=== PATIENT | male | born 1955 | race Caucasian/White ===

== ENCOUNTER → 2022-09-15 08:56 | Outpatient (REF) | payer OTHER, SELFPAY ==
--- NOTE | 2022-09-15 08:59 | CA_ITS ---
Acquisition Time: 2022-09-15 09:24:05 Total Exercise Time: 00:05:01 Test Indications: CP Medications: SEE CHART Protocol: DANIELLE Max HR: 151 BPM 98% of Pred: 154 BPM Max BP: 150/064 mmHG Max Work Load: 7.0 METS Exercise stress test with exercise 5 min of Danielle protocol achieving heart rate over 90% MPHR, 7 METs, with moderate shortness of breath and no chest discomfort, with isolated PACs, with normotensive response to exercise, with artifact on tracings during exercise, without EKG changes meeting criteria for ischemia at 12 sec recovery and remainder of recovery. Breathing normalized with rest. Test reviewed with Dr Luevano Referred By: Kaity Blanc Overread By: JESSE WILSON
== END ==
LOC: HO.CARD 08:56
PROVIDERS: Visit Provider Internal Medicine
DX: R07.9 Chest pain, unspecified (principal)
CPT/HCPCS: 93017

== ENCOUNTER 2022-10-07 12:32 | Outpatient (REF) | payer OTHER, SELFPAY ==
[2022-10-07 14:10] LABS: MANUAL DIFF FLAG NO
[2022-10-07 14:15] LABS: Basophils Absolute Auto 0.1 X10*3/uL (0.0-0.2); Basophils Percent Auto 0.8 % (0-2); Eosinophils Absolute Auto 0.2 X10*3/uL (0.0-0.4); Eosinophils Percent Auto 3.6 % (0-4); Hematocrit 42.8 % (42.0-52.0); Imm Gran Abs Auto 0.02 X10*3/uL (0.00-0.03); Imm Gran Pct Auto 0.3 % (0.0-0.4); Lymphocytes Absolute Auto 1.8 X10*3/uL (1.2-4.9); Lymphocytes Percent Auto 26.3 % (20-40); Mean Corpuscular HGB Conc 32.7 g/dl (31.0-36.0); Mean Corpuscular Hemoglobin 30.6 pg (27.0-33.0); Mean Corpuscular Volume 93.7 fL (80.0-98.0); Mean Platelet Volume 10.8 fL (9.4-12.4); Monocytes Absolute Auto 0.7 X10*3/uL (0.1-1.2); Monocytes Percent Auto 10.8 % (2-11); Neutrophils Absolute Auto 3.9 x10*3/uL (2.0-8.3); Neutrophils Percent Auto 58.2 % (45-73); Platelet Count 228 X10*3/uL (160-400); Red Blood Count 4.57 X10*6/uL (4.60-5.80); Red Cell Distribution Width 13.2 % (11.0-16.0); White Blood Count 6.7 X10*3/uL (4.8-10.8)
[2022-10-07 14:42] LABS: Alanine Aminotransferase 31 U/L (0-40); Albumin Level 4.4 g/dL (3.5-5.0); Alkaline Phosphatase 52 U/L (39-117); Anion Gap 14 (12-20); Aspartate Amino Transferase 28 U/L (5-37); Bilirubin Total 0.5 mg/dL (0.0-1.0); Blood Urea Nitrogen 17 mg/dL (9-16); Calcium 9.5 mg/dL (8.4-10.2); Carbon Dioxide 27 mmol/L (22-29); Chloride 105 mmol/L (96-108); Cholesterol 184 mg/dL; Estimated Glomerular Filt Rate > 60; Glucose Random 89 mg/dL (60-115); HDL Cholesterol 41 mg/dL; LDL Cholesterol Calculated 128 mg/dl; Potassium 4.9 mmol/L (3.3-5.1); Sodium 141 mmol/L (135-145); Total Protein 7.4 g/dL (6.5-8.0); Triglycerides 76 mg/dL
[2022-10-07 14:48] LABS: Free T4 (Free Thyroxine) 1.01 ng/dL (0.71-1.85); Prostate Specific Antigen Scr 0.29 ng/mL (<0.05-4.0)
[2022-10-07 14:58] LABS: Folate 18.6 ng/mL (> or = 4.0); Vitamin B12 540 pg/mL (200-900)
== END 2022-10-07 12:33 | disposition home or self-care (01) ==
LOC: HO.HMGCLDS 12:32
PROVIDERS: PCP Internal Medicine; Visit Provider Internal Medicine
DX: Z12.5 Encounter for screening for malignant neoplasm of prostate (principal); E78.00 Pure hypercholesterolemia, unspecified; E66.9 Obesity, unspecified
CPT/HCPCS: 36415; 80053; 80061; 82607; 82746; 84153; 84439; 84443; 85025

== ENCOUNTER 2023-02-27 21:27 | Emergency (ER) | payer MEDICARE, SELFPAY ==
[2023-02-27 21:30] VITALS: BP 155/84; PULSE 67; RESP 18; TEMP 36.5; O2SAT 96; BMI 35.6
--- NOTE | 2023-02-27 23:11 | ED.DENTAL ---
HPI - Dental/Oral General Chief complaint: Dental/Oral Stated complaint: Toothache Time Seen by Provider: 02/27/23 22:18 Source: patient and family () Mode of arrival: ambulatory History of Present Illness HPI Narrative: 68-year-old male who presents with significant worsening of right lower molar pain, pulsating in nature and sensitive to heat and cold. Related Data Previous Rx's Medication Instructions Recorded amoxicillin 875 mg-potassium 1 tab PO BID 7 days #14 tabs 02/27/23 clavulanate 125 mg tablet ketorolac 10 mg tablet 10 mg PO Q6H PRN pain 5 days #20 02/27/23 tabs Allergies Allergy/AdvReac Type Severity Reaction Status Date / Time No Known Allergies Allergy Verified 02/27/23 21:29 Review of Systems Review of Systems: Pertinent positives and negatives as stated HPI [facility] Past Medical History Source: nursing notes reviewed Medical History Obesity (BMI 30-39.9) Renal calculi Surgical History History of lithotripsy Social History Social History Housing: Apartment Alcohol intake: never Patient Tobacco Use Status: Never used Tobacco Tobacco use type: Cigarette e-Cigarette/Vaping Use: Never Used Second Hand Smoke Exposure: No Advance Directives: No Advance Directives Information Provided: No service: No Current occupational status: retired Cognitive needs: No Hearing needs: No Vision needs: No Physical Exam Vital Signs: Vital Signs: Last Vital Signs Temp 97.7 F 02/27/23 21:30 Pulse 67 02/27/23 21:30 Resp 18 02/27/23 21:30 BP 155/84 H 02/27/23 21:30 Pulse Ox 96 02/27/23 21:30 O2 Del Method Room Air 02/27/23 21:30 BMI result Body Mass Index 35.6 VITAL SIGNS: Reviewed. GENERAL: Well developed, well nourished, in no acute distress. HEAD: Normocephalic/atraumatic EYES: PERRLA, EOMI EARS: Ext canals without abnormality NOSE: Nares patent bilateral OROPHARYNX: no oral lesions noted, posterior pharynx clear, obvious cracked molar with half of the missing tooth minimal gingival swelling no facial swelling no trismus NECK: Supple, no adenopathy LUNGS: Normal breath sounds. No adventitious sounds or accessory muscle use. SpO2<96> CARDIOVASCULAR: Regular rate and rhythm without noted murmurs ABDOMEN: Soft, non-tender, non-distended with bowel sounds. MUSCULOSKELETAL: No tenderness, deformities, or effusions noted on gross inspection. EXTREMITIES: No cyanosis, clubbing or edema. SKIN: Inspection of the skin reveals no rashes NEUROLOGIC: Alert and oriented x 4. Strength and sensation to light touch were grossly intact x 4. Medications Administered Discontinued Medications Generic Name Dose Route Start Last Admin Trade Name Freq PRN Reason Stop Dose Admin Acetaminophen 975 mg 02/27/23 23:10 02/27/23 23:28 Acetaminophen 325 Mg Tablet PO 02/27/23 23:11 975 mg ONCE ONE Administration Amoxicillin/Clavulanate Potassium 875 mg 02/27/23 23:10 02/27/23 23:27 Amoxicillin/Potassium Clav 875 Mg Tablet PO 02/27/23 23:11 875 mg ONCE ONE Administration Ketorolac Tromethamine 15 mg 02/27/23 23:10 02/27/23 23:29 Ketorolac Tromethamine 15 Mg/Ml Vial IM 02/27/23 23:11 15 mg ONCE ONE Administration Oxycodone HCl 5 mg 02/27/23 23:10 02/27/23 23:27 Oxycodone Hcl Immed Release 5 Mg Tablet PO 02/27/23 23:11 5 mg ONCE ONE Administration Medical Decision Making Medical Decision Making MDM Narrative: 68-year-old male with poor dentition, dental caries with cracked molar and likely dental abscess. Patient received pain medication, antibiotic and is discharged home in stable condition. Patient has follow-up with a dentist. Differential Diagnosis Please see the discussion above External Record Review External record reviewed: Prior outpatient labs Discharge Plan Discharge Clinical Impression: Dental abscess, Cracked tooth Patient Disposition: Home, Self-Care Instructions: Dental Abscess (ED), Toothache (ED) Additional Instructions: 1. Complete the entire course of antibiotics as ordered. 2. Tylenol 1000 mg, orally, every 6 hours as needed for pain control. 3. Apply ice to unexposed skin for additional symptom relief of toothache. 4. Please utilize the topical numbing medication to dry gum and tooth area. 5. Keep your dental appointment as scheduled. Return to the ER for any worsening symptoms. Prescriptions: New ketorolac 10 mg tablet 10 mg PO Q6H PRN (Reason: pain) 5 Days Qty: 20 0RF Rx Instructions: Patient received in the emergency room. amoxicillin-pot clavulanate 875-125 mg tablet 1 tab PO BID 7 Days Qty: 14 0RF Referrals: Po,Kaity Concepcion MD [Primary Care Provider] -
[2023-02-27] MEDS: oxyCODONE HCl Immed Release 5 MG TABLET PO (23:27)
[2023-02-27] MEDS: Amoxicillin/Potassium Clav 875 MG TABLET PO (23:27)
[2023-02-27] MEDS: Acetaminophen 325 MG TABLET 975 MG PO (23:28)
[2023-02-27] MEDS: Ketorolac Tromethamine 15 MG/ML VIAL IM (23:29)
== END 2023-02-27 23:30 | disposition home or self-care (01) ==
PROVIDERS: Emergency Provider Student in an Organized Health Care Education/Training Program; PCP Internal Medicine
DX: K04.7 Periapical abscess without sinus (principal); K03.81 Cracked tooth; K08.89 Other specified disorders of teeth and supporting structures; F17.200 Nicotine dependence, unspecified, uncomplicated
CPT/HCPCS: 96372; 99283; 99284; J1885

== ENCOUNTER 2023-03-01 01:58 | Emergency (ER) | payer MEDICARE, SELFPAY ==
--- NOTE | ~2023-03-01 | CT_ITS ---
EXAMINATION: CT FACIAL BONES WITH CONTRAST CLINICAL INFORMATION: Rule out abscess along right mandible. COMPARISON: None available. TECHNIQUE: Multidetector CT imaging of the maxillofacial region was performed after the administration of 80 mL Omnipaque 350 intravenous contrast. Coronal and sagittal reformats created on an independent workstation were reviewed. This CT examination was performed using dose optimization techniques as appropriate, variously including the following: *Automated exposure control *Adjustment of mA and/or kV according to patient size (this includes techniques or standardized protocols for targeted exams where dose is matched to indication/reason for exam; i.e. extremities or head) *Use of iterative reconstruction technique DLP: 417 mGy-cm FINDINGS: There is fat stranding within the buccal fat in the right mandibular and submandibular subcutaneous fat with accompanying skin thickening, and mild thickening of the right platysma. No drainable collection identified deep spaces of the neck are symmetric. No evidence of deep space infection. No retroperitoneal fluid. Regional soft tissue structures unremarkable. Orbits and globes are normal. Carotid and vertebral arteries are patent. No venous thrombosis. Mildly hyperemic reactive right submandibular lymph nodes without pathologic enlargement. Periapical abscesses along the roots of the right mandibular first molar. Small periapical abscess of the right maxillary first premolar with associated caries. No periapical disease elsewhere. Caries present of the left mandibular first and second premolars. CT/CT facial bones w IV con IMPRESSION: * Right mandibular and submandibular cellulitis. No evidence of deep space infection. * Periapical abscesses along the roots of the right mandibular first molar, right maxillary first premolar with associated caries. * Caries present of the left mandibular first and second premolars.
[2023-03-01 02:07] VITALS: BP 127/69; PULSE 83; RESP 15; TEMP 37.1; O2SAT 95; BMI 36.6
--- NOTE | 2023-03-01 02:29 | ED_ITS ---
HPI - Dental/Oral General Chief complaint: Dental/Oral Stated complaint: Dental abscess Time Seen by Provider: 03/01/23 02:01 Source: patient Mode of arrival: ambulatory Limitations: no limitations History of Present Illness HPI Narrative: Patient comes to the emergency room complaining of swelling in the right man dibular area. Patient was evaluated approximately 26 hours ago for a cracked tooth. Patient was appropriately started on Augmentin and given ketorolac for pain. Patient states that he has been compliant with his antibiotic, and throughout the day patient has had labial lower swelling and worsening swelling around the right mandibular area. Patient states that it does not hurt significantly. However, the size of the inflammation patient wear it. Patient denies any chest pain or shortness of breath, no foreign body sensation in throat. Related Data Previous Rx's Medication Instructions Recorded amoxicillin 875 mg-potassium 1 tab PO BID 7 days #14 tabs 02/27/23 clavulanate 125 mg tablet ketorolac 10 mg tablet 10 mg PO Q6H PRN pain 5 days #20 02/27/23 tabs Lactobacil rhamnosus GG 10 billion 1 tab PO .T.i.d. 15 days #45 tabs 03/01/23 cell-inulin 200 mg chewable tablet ([facility] [employer] [facility]) clindamycin HCl 150 mg capsule 150 mg PO Q6H 10 days #40 caps 03/01/23 tramadol 50 mg tablet 50 mg PO TID PRN pain #9 tabs 03/01/23 Allergies Allergy/AdvReac Type Severity Reaction Status Date / Time No Known Allergies Allergy Verified 03/01/23 02:09 Review of Systems Review of Systems: Constitutional : No Weight loss, No Fever, No Chills, No Night Sweats, No Fatigue, No Malaise ENT/Mouth : Complaining of mandibular swelling on the right side and a cracked tooth, No Hearing loss, No Ear Pain, No Nasal Congestion, No Sinus Pain, No Hoarseness, No sore throat, No Rhinorrhea, No Swallowing Difficulty Eyes: No Eye Pain, No Swelling, No Redness, No Foreign Body, No Discharge, No Vision Changes Cardiovascular : No Chest Pain, No SOB, No Dyspnea on Exertion, No Orthopnea, No Edema, No Palpitations Respiratory : No Cough, No Sputum, No Wheezing, No Smoke Exposure, No Dyspnea Gastrointestinal : No Nausea, No Vomiting, No Diarrhea, No Constipation, No abdominal Pain, No Hematochezia, No Melena Genitourinary : no irregular bleeding, No Dysuria, No Urinary Frequency, No H ematuria, No Urinary Incontinence, No Urgency, No Flank Pain, No Urinary Flow Changes, No Hesitancy Musculoskeletal : No joint pain, No Myalgias, No Joint Swelling Skin : No Skin Lesions, No rash Neuro : No Weakness, No Numbness, No Paresthesias, No Loss of Consciousness, No Dizziness, No Headache Psych : No Anxiety/Panic, No Depression, No SI/HI/AH/VH, No Social Issues, Heme/Lymph: No Bruising, No Bleeding,No Lymphadenopathy Endocrine : No Polyuria, No Polydipsia, No Temperature Intolerance [facility] Past Medical History Medical History Obesity (BMI 30-39.9) Renal calculi Surgical History History of lithotripsy Social History Social History Housing: Apartment Alcohol intake: never Patient Tobacco Use Status: Never used Tobacco Tobacco use type: Cigarette Smoked in Last 30 Days: No e-Cigarette/Vaping Use: Never Used Second Hand Smoke Exposure: No Use of substances other than those prescribed or required for medical reasons: No Advance Directives: No Advance Directives Information Provided: Yes service: No Current occupational status: retired Cognitive needs: No Hearing needs: No Vision needs: No Physical Exam Vital Signs: Vital Signs: Last Vital Signs Temp 97.4 F 03/01/23 02:42 Pulse 85 03/01/23 02:42 Resp 18 03/01/23 02:42 BP 137/85 03/01/23 02:42 Pulse Ox 96 03/01/23 02:42 O2 Del Method Room Air 03/01/23 02:42 BMI result Body Mass Index 36.6 Const: Other: Appearance: Alert. Oriented X3. No acute distress. Eyes: Pupils equal, round and reactive to light. ENT: Pharynx normal. Cracked 1st molar and the mandibular right side, significant swelling of the lower lip, palpable edema and the mucosa on the right in it cheek. no pain to palpation over the swelling, patient has edematous lower lip on the right half. I do not see an abscess that could be drained Neck: Normal inspection. Neck supple. No lymph nodes noted. No crepitus CVS: Normal heart rate and rhythm. Pulses normal. Normal S1 and S2 Respiratory: No respiratory distress. Breath sounds normal. No Wheezing. No rales Abdomen: Soft and nontender. No rigidity. No distention. Skin: Skin warm and dry. Normal skin color. Normal skin turgor. Extremities: No lower extremity edema. No Lacerations. No Rash Neuro: Oriented X 3. No motor deficit. No sensory deficit. Moving all extremities. No slurred speech. CN 2 through 12 grossly intact Psych: calm, cooperative, normal affect Course Course Course Narrative: -CT scan of the facial bones with contrast pending -CBC pending -given the swelling of the lips, edema of the inner mucosa, this is likely secondary to medication rather than an abscess. patient being started on Solu-Medrol, Pepcid, Benadryl -antibiotics switched to clindamycin, 1st dose given IV Medications Administered Discontinued Medications Generic Name Dose Route Start Last Admin Trade Name Freq PRN Reason Stop Dose Admin Diphenhydramine HCl 50 mg 03/01/23 02:07 03/01/23 02:38 Diphenhydramine Hcl 50 Mg/Ml Vial IVPUSH 03/01/23 02:08 50 mg ONCE ONE Administration Famotidine 20 mg 03/01/23 02:07 03/01/23 02:38 Famotidine/Pf 20 Mg/2 Ml Vial IVPUSH 03/01/23 02:08 20 mg ONCE ONE Administration Sodium Chloride 1,000 mls @ 999 mls/hr 03/01/23 02:07 03/01/23 02:37 Ns IVCONT 03/01/23 03:07 999 mls/hr .Q1H1M ONE Administration Clindamycin Phosphate 300 mg in 50 mls @ 100 mls/hr 03/01/23 02:07 03/01/23 02:38 Cleocin IV 03/01/23 02:36 100 mls/hr ONCE ONE Administration Iohexol 85 ml 03/01/23 03:02 03/01/23 03:02 Iohexol 350 Mg/Ml 100 Ml Infus..Btl IV 03/01/23 03:03 85 ml ONCE ONE Administration Methylprednisolone Sodium Succinate 125 mg 03/01/23 02:07 03/01/23 02:38 Methylprednisolone Sod Succ 125 Mg/2 Ml Vial IVPUSH 03/01/23 02:08 125 mg ONCE ONE Administration Medical Decision Making Medical Decision Making [facility] Narrative: -the swelling in the patient's face does not seem to be secondary to an abscess, it is relatively painless. There is no external cellulitis. -patient responded well to treatment with steroids, Pepcid and Benadryl. The s welling of the lower lip significantly decreased. -I discussed with the patient to discontinue taking Augmentin and Toradol which are 2 new medications which she has not had before they were prescribed. -patient has an appointment today with his dentist, encouraged to keep his appointment today. -also, discussed with the patient that clindamycin because C difficile. Patient instructed to eat plenty of yogurt and take probiotics -also, since Toradol is new, patient struck to discontinue taking Toradol and a small dose of narcotics will be prescribed to the patient. -patient has no pain under the tongue or in the chin area, white blood cell count is mildly elevated, no fever chills, normal blood pressure, sepsis not suspected, Mak's angina is not suspected Differential Diagnosis Differential Diagnoses: The differential diagnosis associated with the presentation includes (Cellulitis, allergic reaction, abscess, Mak's angina) Lab Data MDM Lab Attestation statement: I reviewed the patient's lab results. 03/01/23 02:22 03/01/23 02:22 Labs: Lab Results 03/01/23 03/01/23 03/01/23 Range/Units 02:22 02:22 02:22 WBC 12.1 H (4.8-10.8) X10*3/uL RBC 4.40 L (4.60-5.80) X10*6/uL Hgb 13.6 L (14.0-18.0) g/dl Hct 40.5 L (42.0-52.0) % MCV 92.0 (80.0-98.0) fL MCH 30.9 (27.0-33.0) pg MCHC 33.6 (31.0-36.0) g/dl RDW 12.6 (11.0-16.0) % Plt Count 209 (160-400) X10*3/uL MPV 10.0 (9.4-12.4) fL Immature Gran % (Auto) 0.2 (0.0-0.4) % Neut % (Auto) 72.1 (45-73) % Lymph % (Auto) 13.4 L (20-40) % [place] % (Auto) 12.9 H (2-11) % Eos % (Auto) 1.1 (0-4) % Baso % (Auto) 0.3 (0-2) % Lymph # (Auto) 1.6 (1.2-4.9) X10*3/uL [place] # (Auto) 1.6 H (0.1-1.2) X10*3/uL Eos # (Auto) 0.1 (0.0-0.4) X10*3/uL Baso # (Auto) 0.0 (0.0-0.2) X10*3/uL Abs Immat Gran (auto) 0.03 (0.00-0.03) X10*3/uL Absolute Neuts (auto) 8.7 H (2.0-8.3) x10*3/uL Absolute Nucleated RBC 0.000 (0.0-0.012) X10*3/uL Nucleated RBC % (auto) 0.0 (0.0-0.2) /100WBC Smear Tech's Comments VERIFIED Sodium 139 (135-145) mmol/L Potassium 4.4 (3.3-5.1) mmol/L Chloride 104 (96-108) mmol/L Carbon Dioxide 25 (22-29) mmol/L Anion Gap 14 (12-20) BUN 11 (9-16) mg/dL Creatinine 0.90 (0.5-1.4) mg/dL Estim Creat Clear Calc 107.6 Estimated GFR > 60 Random Glucose 102 (60-115) mg/dL Lactic Acid 0.9 (0.5-2.0) mmol/L Calcium 8.8 D (8.4-10.2) mg/dL Total Bilirubin 0.7 (0.0-1.0) mg/dL Direct Bilirubin 0.2 (0.0-0.5) mg/dL AST 20 (5-37) U/L ALT 22 (0-40) U/L Alkaline Phosphatase 56 (39-117) U/L Total Protein 6.9 (6.5-8.0) g/dL Albumin 4.1 (3.5-5.0) g/dL Independent Interpretation I performed an independent interpretation of an: CT Scan (My interpretation of facial bones CT scan: No abscess, edema versus cellulitis present) Radiology Impression Discussion of test interpretation with radiology: I have reviewed the radiologist's reading. Radiologist Impression: FINDINGS: Head: There is no evidence of acute intracranial hemorrhage or territorial infarction. No abnormal mass effect or midline shift is seen. Landis to white matter differentiation is well preserved. No extra-axial fluid collections are identified. No hydrocephalus. No significant volume loss. There is no abnormal attenuation within the brain parenchyma. No acute soft tissue abnormality. No calvarial fracture. The mastoid air cells are well aerated. Maxillofacial: No acute maxillofacial fractures are seen. The frontal, maxillary, ethmoid, and sphenoid sinuses are well aerated. The uncinate process is normal bilaterally. The infundibula and middle meati are patent. The nasal septum is midline. The mandibular heads are well-seated in the condylar fossa. The orbits demonstrate a normal appearance bilaterally. The globes are intact, and there are no suspicious findings to suggest retrobulbar hemorrhage. There is left premaxillary and buccal soft tissue swelling/stranding with trace soft tissue gas punctate hyperdensities reflective of foreign bodies. CT/CT facial bones wo IV con IMPRESSION: *? No acute intracranial findings. *? No acute maxillofacial fracture. *? Left premaxillary and buccal soft tissue trauma as described. ? Discharge Plan Discharge Clinical Impression: Adverse reaction to drug Patient Disposition: Home, Self-Care Instructions: Antibiotic Medication Allergy (ED) Additional Instructions: Please do not take penicillins or Toradol until you get tested for allergies to these 2 medications. If you develop significant diarrhea, please return to the emergency room. Please follow-up with your primary care physician tomorrow. If you have any worsening or new symptoms, please return to the emergency room or call 911 Prescriptions: New clindamycin HCl 150 mg capsule 150 mg PO Q6H 10 Days Qty: 40 0RF tramadol 50 mg tablet 50 mg PO TID PRN (Reason: pain) Qty: 9 0RF [facility] 10 billion cell -200 mg tablet,chewable 1 tab PO .T.i.d. 15 Days Qty: 45 0RF Rx Instructions: One tablet oral t.i.d. No Action ketorolac 10 mg tablet 10 mg PO Q6H PRN (Reason: pain) 5 Days Qty: 20 0RF Rx Instructions: Patient received in the emergency room. amoxicillin-pot clavulanate 875-125 mg tablet 1 tab PO BID 7 Days Qty: 14 0RF
[2023-03-01 02:30] LABS: Basophils Percent Auto 0.3 % (0-2); Eosinophils Absolute Auto 0.1 X10*3/uL (0.0-0.4); Eosinophils Percent Auto 1.1 % (0-4); Hematocrit 40.5 % (42.0-52.0); Hemoglobin 13.6 g/dl (14.0-18.0); Imm Gran Abs Auto 0.03 X10*3/uL (0.00-0.03); Imm Gran Pct Auto 0.2 % (0.0-0.4); Lymphocytes Absolute Auto 1.6 X10*3/uL (1.2-4.9); Lymphocytes Percent Auto 13.4 % (20-40); MANUAL DIFF FLAG SCAN; Mean Corpuscular HGB Conc 33.6 g/dl (31.0-36.0); Mean Corpuscular Hemoglobin 30.9 pg (27.0-33.0); Monocytes Absolute Auto 1.6 X10*3/uL (0.1-1.2); Monocytes Percent Auto 12.9 % (2-11); Neutrophils Absolute Auto 8.7 x10*3/uL (2.0-8.3); Neutrophils Percent Auto 72.1 % (45-73); Platelet Count 209 X10*3/uL (160-400); Red Cell Distribution Width 12.6 % (11.0-16.0); SCAN SMEAR FLAG 1; White Blood Count 12.1 X10*3/uL (4.8-10.8)
[2023-03-01 02:32] LABS: SLIDE REVIEW VERIFIED
[2023-03-01] MEDS: 0.9 % Sodium Chloride 1,000 ML 999 ML IVCONT (02:37)
[2023-03-01] MEDS: diphenhydrAMINE HCL 50 MG/ML VIAL IVPUSH (02:38)
[2023-03-01] MEDS: Clindamycin Phosphate/D5W 300 MG/50 ML PIGGYBACK 100 MG IV (02:38)
[2023-03-01] MEDS: Famotidine/PF 20 MG/2 ML VIAL IVPUSH (02:38)
[2023-03-01] MEDS: methylPREDNISolone Sod Succ 125 MG/2 ML VIAL IVPUSH (02:38)
[2023-03-01 02:39] LABS: Lactic Acid 0.9 mmol/L (0.5-2.0)
[2023-03-01 02:42] VITALS: BP 137/85; PULSE 85; RESP 18; TEMP 36.3; O2SAT 96
[2023-03-01 02:44] LABS: Alanine Aminotransferase 22 U/L (0-40); Albumin Level 4.1 g/dL (3.5-5.0); Alkaline Phosphatase 56 U/L (39-117); Anion Gap 14 (12-20); Aspartate Amino Transferase 20 U/L (5-37); Bilirubin Direct 0.2 mg/dL (0.0-0.5); Bilirubin Total 0.7 mg/dL (0.0-1.0); Blood Urea Nitrogen 11 mg/dL (9-16); Calcium 8.8 mg/dL (8.4-10.2); Carbon Dioxide 25 mmol/L (22-29); Chloride 104 mmol/L (96-108); Creatinine Clr Calc Pharmacy 107.6; Estimated Glomerular Filt Rate > 60; Glucose Random 102 mg/dL (60-115); Potassium 4.4 mmol/L (3.3-5.1); Sodium 139 mmol/L (135-145); Total Protein 6.9 g/dL (6.5-8.0)
[2023-03-01] MEDS: iohexoL 350 MG/ML 100 ML INFUS..BTL 85 ML IV (03:02)
--- NOTE | 2023-03-01 03:22 | PC.NURSE ---
pt is talking in full sentences, no drooling. right side of face is swollen, no s/s of resp distress noted. at bedside and is a rn.
[2023-03-01 04:00] VITALS: BP 148/81; PULSE 78; RESP 16; O2SAT 96
[2023-03-01 04:29] VITALS: RESP 16
[2023-03-01] MEDS: Morphine Sulfate 2 MG/ML CARTRIDGE IVPUSH (04:29)
[2023-03-01 04:38] VITALS: BP 132/69; PULSE 77; RESP 16; TEMP 36.6; O2SAT 94
== END 2023-03-01 04:53 | disposition home or self-care (01) ==
PROVIDERS: Emergency Provider Emergency Medicine; PCP Internal Medicine
DX: K08.89 Other specified disorders of teeth and supporting structures (principal); R51.9 Headache, unspecified; Z79.899 Other long term (current) drug therapy
CPT/HCPCS: 36415; 70487; 80048; 80076; 83605; 85025; 87040; 96361; 96374; 96375; 99284; J1200; J2270; J2930; Q9967

== ENCOUNTER 2023-08-30 14:38 | Outpatient (AMB) | payer MEDICARE, SELFPAY ==
[2023-08-30 14:39] VITALS: BP 132/84; PULSE 88; O2SAT 96; BMI 38.0
--- NOTE | 2023-08-30 14:39 | MHC.PC.OV ---
Vital Signs 08/30/23 14:39 Height 6 ft Weight 280 lb BMI 38.0 BP 132/84 Blood Pressure Location Lt brachial Position Sitting Pulse 88 Pulse Source Pulse Oximeter Temp Source Skin Pulse Oximetry (%) 96 Oxygen Delivery Method Room Air Intake Visit Reasons: Annual Exam Intake Note: Patient is here today for a physical. Networking Administrator Required: No Allergies amoxicillin [From Augmentin] Adverse Reaction (Intermediate, Unverified 08/30/23 14:57) Angioedema clavulanic acid [From Augmentin] Adverse Reaction (Intermediate, Unverified 08/30/23 14:57) Angioedema ketorolac [From Toradol] Adverse Reaction (Intermediate, Unverified 08/30/23 14:57) lip swollen Tobacco use date assessed: 08/30/23 Fall risk assessment: No Falls in past year Last assessed Fall Risk: 08/30/23 Dental Screening Dental Screen Date: 08/30/23 Did you have a dental visit in the last 12 months?: Yes Did you have a dental problem in the last 6 months where you did not have access to dental care?: No Was dental information given to patient?: Patient has dentist HPI Annual Exam HPI Details 68-year-old morbidly obese male coming in for physical exam. Last seen last year had chest pains and stress test was requested. Results: Exercise stress test with exercise 5 min of Cheo protocol achieving heart rate over 90% MPHR, 7 METs, with moderate shortness of breath and no chest discomfort, with isolated PACs, with normotensive response to exercise, with artifact on tracings during exercise, without EKG changes meeting criteria for ischemia at 12 sec recovery and remainder of recovery. Breathing normalized with rest. Test reviewed with Dr Luevano Patient's colonoscopy is up-to-date. Review of the notes February 2023 was in the emergency room having right mandibular swelling after a cracked tooth in which has seen the dentist and was given an antibiotic. After taking the antibiotic patient had swelling of lip antibiotic was discontinued and placed on a different . Face CT done February 2023Right mandibular and submandibular cellulitis. No evidence of deep space infection. * Periapical abscesses along the roots of the right mandibular first molar, right maxillary first premolar with associated caries. * Caries present of the left mandibular first and second premolars. [facility] Medical History Obesity (BMI 30-39.9) Renal calculi Surgical History History of lithotripsy Social History Housing: Apartment Alcohol intake: never Patient Tobacco Use Status: Never used Tobacco Tobacco use type: Cigarette e-Cigarette/Vaping Use: Never Used Second Hand Smoke Exposure: No service: No Current occupational status: retired Cognitive needs: No Hearing needs: No Vision needs: No Questionnaire PHQ-9 Over the last 2 weeks, how often have you been bothered by any of the following problems? 1. Little interest or pleasure in doing things: not at all 2. Feeling down, depressed, or hopeless: not at all 3. Trouble falling or staying asleep, or sleeping too much: not at all 4. Feeling tired or having little energy: not at all 5. Poor appetite or overeating: not at all 6. Feeling bad about yourself - or that you are a failure or have let yourself or your family down: not at all 7. Trouble concentrating on things, such as reading the newspaper or watching television: not at all 8. Moving or speaking so slowly that other people could have noticed. Or the opposite - being so fidgety or restless that you have been moving around a lot more than usual: not at all 9. Thoughts that you would be better off or of hurting yourself in some way: not at all Total score: 0 Depression Screening Interpretation: Negative Depression Screening Done: Yes Source: Developed by Drs. David Larsen, Mary Snyder, Curtis Urbina and colleagues, with an educational mary lou from [employer]. Thrive Questionnaire Date Thrive assessed: 08/30/23 I am a: Patient What is your living situation today?: I have a steady place to live Within the past 12 months, did the food you bought not last and you didn't have the money to get more?: Never true Within the past 12 months, did you worry whether your food would run out before you got money to buy more?: Never true AUDIT C Alcohol Use Questionnaire (AUDIT-C) 1. How often do you have a drink containing alcohol?: Never 2. How many drinks containing alcohol do you have on a typical day when you are drinking?: 1 or 2 3. How often do you have six or more drinks on one occasion?: Never Total Score: 0 LOU-7 AMB Questionnaire LOU-7 Date LOU - 7 assessed: 08/30/23 Feeling nervous, anxious, or on edge: 0 = Not at all Not being able to stop or control worryin = Not at all Worrying too much about different things: 0 = Not at all Trouble relaxin = Not at all Being so restless that it is hard to sit still: 0 = Not at all Becoming easily annoyed or irritable: 0 = Not at all Feeling afraid as if something awful might happen: 0 = Not at all Total LOU-7 score (0-4 normal; 5-9 mild; 10-14 moderate; 15-21 severe): 0 Source: Developed by Drs. David Larsen, Mary Snyder, Curtis Urbina and colleagues, with an educational mary lou from [employer]. Review of Systems Const Denies poor appetite and Denies weakness Eyes Denies no additional complaints ENT Reports Normal hearing present, Denies dizziness, Denies nasal congestion, Denies tinnitus and Denies sore throat Card Denies chest pain, Denies syncope, Denies rapid heart rate and Denies dyspnea Resp Denies cough and Denies dyspnea GI Denies change in stool character, Reports constipation, Denies diarrhea, Denies nausea and Denies vomiting Denies dysuria and Denies urinary frequency Neuro Reports Normal hearing present, Denies confusion, Denies dizziness, Denies syncope and Denies weakness Psych Denies confusion Physical exam (Primary Care) Vital Signs: Last Vital Signs Pulse 88 08/30/23 14:39 BP 132/84 08/30/23 14:39 Pulse Ox 96 08/30/23 14:39 Oxygen Delivery Method Room Air 08/30/23 14:39 BMI result Body Mass Index 38.0 Tobacco/Smoking Status: Tobacco use Status Tobacco use date assessed 08/30/23 08/30/23 14:40 Patient Tobacco Use Status Never used Tobacco 08/30/23 14:40 Tobacco use type Cigarette 08/30/23 14:40 e-Cigarette/Vaping Use Never Used 08/30/23 14:40 PHQ-9: PHQ-9 Score PHQ-9: Total score 0 08/30/23 14:40 Depression Screening Interpretation: Negative Thrive Assessment: Date of Thrive Assessment Date Thrive assessed 08/30/23 08/30/23 14:40 Const General: No confusion Orientation/consciousness: No confusion HENMT Head: Yes normocephalic Ears: external ears normal and TM's normal bilaterally Face and sinus: Yes normal facial exam Mouth: moist mucous membranes Throat: Yes tonsils normal Eyes Conjunctivae: conjunctivae normal Pupils: Equal, round and reactive pupils present and Pupil accommodation reflex normal Direct Ophthalmoscopy: normal light reflex Neck Neck: No lymphadenopathy Thyroid: Thyroid normal Chest Chest palpation & inspection: normal inspection of the chest Resp Effort & Inspection: normal respiratory effort and no audible wheezes Auscultation: clear to auscultation bilaterally, no crackles, no wheezes and lung sounds not diminished Cardio Rate: regular rate Rhythm: regular rhythm Peripheral pulses: radial pulses present and dorsalis pedis present GI Other: guaiac negative prostate enlarged Palpation (GI): no masses Auscultation: normal bowel sounds and normoactive bowel sounds Male General Exam: Yes normal external exam Skin General skin exam: no rashes or lesions noted Rashes: no rashes Neuro General: No confusion Cranial nerves: Yes Equal, round and reactive pupils present and Yes Normal hearing present Cognition (Neuro): normal cognition Gait exam (Neuro): Normal gait present Motor exam (neuro): 5/5 motor strength present throughout Deep tendon reflexes (DTR's): Right brachioradialis reflex intensity grade: 2+, Left brachioradialis reflex intensity grade: 2+, Right patellar reflex intensity grade: 2+ and Left patellar reflex intensity grade: 2+ Extrem General: Yes edema Office Procedures Flu Questionnaire Does the patient have a severe egg allergy?: No Does the patient have severe life threatening allergies?: No Does the patient have a fever or illness today?: No Has the patient ever had Guillain-[place] Syndrome?: No Has the patient ever had any past reaction to a flu shot?: No Immunizations flu vacc [id number] 6mos up(PF) 60 mcg(15 mcgx4)/0.5 mL IM syringe Performing Provider: Kaity Blanc MD Performing Location: [facility] Administered by: FARIDEH Matias on 08/30/23 15:03 Dose Route Admin Location Dispensed Lot Number Expiration Date [employer] 0.5 mL IM Left Deltoid 0.5 mL [id number] 05/21/24 [id number] [employer] VIS Given Date VIS Provided VIS Publication Date 08/30/23 Single Vaccine 21 Eligibility Eligibility Date Funding Source Not [facility] Eligible 08/30/23 Private Assessment and Plan Assessment & Plan (1) Annual physical exam: Code(s): Z00.00 - Encounter for general adult medical examination without abnormal findings (2) Obesity (BMI 30-39.9): Code(s): E66.9 - Obesity, unspecified Plan: Diet and exercise (3) Peripheral vascular disease: Code(s): I73.9 - Peripheral vascular disease, unspecified Plan: elevate legs when sittingdown, exercise and /or support stocking Orders: Orders Influenza [id number] Immunization Today Z23 - Encounter for immunization Complete Blood Count Auto Diff Today E66.9 - Obesity, unspecified Lipid Panel Today E66.9 - Obesity, unspecified, E78.00 - Pure hypercholesterolemia, unspecified Thyroid Stimulating Hormone Today E66.9 - Obesity, unspecified Free T4 (Free Thyroxine) Today E66.9 - Obesity, unspecified Vitamin B12 and Folate Today E66.9 - Obesity, unspecified Comprehensive Met. Panel Today E66.9 - Obesity, unspecified Prostate Specific Antigen Scr Today E66.9 - Obesity, unspecified Hemoglobin A1c Today E66.9 - Obesity, unspecified Coding Level of Care Code Est Pt Prev Care >65y(14100) Diagnoses Annual physical exam Z00.00 Obesity (BMI 30-39.9) E66.9 Peripheral vascular disease I73.9
== END 2023-08-30 15:23 | disposition home or self-care (01) ==
PROVIDERS: Visit Provider Internal Medicine
DX: Z00.00 Encounter for general adult medical examination without abnormal findings (principal); E66.9 Obesity, unspecified; I73.9 Peripheral vascular disease, unspecified; Z68.38 Body mass index [BMI] 38.0-38.9, adult; Z23 Encounter for immunization
CPT/HCPCS: 90471; 90686; 99397

== ENCOUNTER 2024-05-01 10:06 | Outpatient (REF) | payer MEDICARE, SELFPAY ==
[2024-05-01 13:05] LABS: MANUAL DIFF FLAG NO
[2024-05-01 13:19] LABS: Basophils Absolute Auto 0.1 X10*3/uL (0.0-0.2); Basophils Percent Auto 0.7 % (0-2); Eosinophils Absolute Auto 0.2 X10*3/uL (0.0-0.4); Eosinophils Percent Auto 2.4 % (0-4); Hemoglobin 14.4 g/dl (14.0-18.0); Imm Gran Abs Auto 0.03 X10*3/uL (0.00-0.03); Imm Gran Pct Auto 0.4 % (0.0-0.4); Lymphocytes Absolute Auto 1.7 X10*3/uL (1.2-4.9); Lymphocytes Percent Auto 24.8 % (20-40); Mean Corpuscular HGB Conc 33.5 g/dl (31.0-36.0); Mean Corpuscular Hemoglobin 31.3 pg (27.0-33.0); Mean Corpuscular Volume 93.5 fL (80.0-98.0); Monocytes Absolute Auto 0.8 X10*3/uL (0.1-1.2); Monocytes Percent Auto 11.3 % (2-11); Neutrophils Absolute Auto 4.2 x10*3/uL (2.0-8.3); Neutrophils Percent Auto 60.4 % (45-73); Platelet Count 229 X10*3/uL (160-400); Red Cell Distribution Width 12.9 % (11.0-16.0)
[2024-05-01 13:31] LABS: Estimated Average Glucose 114 mg/dL; Hemoglobin A1c % 5.6 % (<6.0)
[2024-05-01 13:58] LABS: Alanine Aminotransferase 29 U/L (0-40); Albumin Level 4.3 g/dL (3.5-5.0); Alkaline Phosphatase 52 U/L (39-117); Anion Gap 17 (12-20); Aspartate Amino Transferase 25 U/L (5-37); Bilirubin Total 0.6 mg/dL (0.0-1.0); Blood Urea Nitrogen 18 mg/dL (9-16); Calcium 9.8 mg/dL (8.4-10.2); Carbon Dioxide 24 mmol/L (22-29); Chloride 107 mmol/L (96-108); Cholesterol 148 mg/dL (<200); Estimated Glomerular Filt Rate > 60; Glucose Random 97 mg/dL (60-115); HDL Cholesterol 35 mg/dL (>40); LDL Cholesterol Calculated 102 mg/dL (<100); Potassium 4.5 mmol/L (3.3-5.1); Sodium 143 mmol/L (135-145); Total Protein 7.6 g/dL (6.5-8.0); Triglycerides 57 mg/dL (<150)
[2024-05-01 13:59] LABS: Free T4 (Free Thyroxine) 0.96 ng/dL (0.71-1.85); Thyroid Stimulating Hormone 0.98 uIU/mL (0.32-4.0)
[2024-05-01 14:21] LABS: Folate 12.5 ng/mL (> or = 4.0); Vitamin B12 638 pg/mL (200-900)
== END 2024-05-01 10:07 | disposition home or self-care (01) ==
LOC: HO.HMGCLDS 10:06
PROVIDERS: PCP Internal Medicine; Visit Provider Internal Medicine
DX: E66.9 Obesity, unspecified (principal); E78.00 Pure hypercholesterolemia, unspecified; Z12.5 Encounter for screening for malignant neoplasm of prostate
CPT/HCPCS: 36415; 80053; 80061; 82607; 82746; 83036; 84153; 84439; 84443; 85025

== ENCOUNTER 2024-08-31 15:00 | Outpatient (AMB) | payer MEDICARE, SELFPAY ==
--- NOTE | 2024-08-31 15:02 | A.OFFPC_ITS ---
Vital Signs 08/31/24 15:04 Height 6 ft Weight 277 lb 2 oz BMI 37.6 BP 112/74 Blood Pressure Location Lt brachial Position Sitting Pulse 94 Pulse Source Pulse Oximeter Pulse Oximetry (%) 97 Oxygen Delivery Method Room Air Intake Visit Reasons: Annual PE Intake Note: Patient is here today for a physical. 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 Required: No It Operations Analyst: Not Required per policy Accompanied by: Self / Same As Patient Allergies amoxicillin [From Augmentin] Adverse Reaction (Intermediate, Verified 08/31/24 15:04) Angioedema clavulanic acid [From Augmentin] Adverse Reaction (Intermediate, Verified 08/31/24 15:04) Angioedema ketorolac [From Toradol] Adverse Reaction (Intermediate, Verified 08/31/24 15:04) lip swollen Medication List - Last Reconciled 08/31/24 by Kaity Blanc MD No Known Home Meds Tobacco use date assessed: 08/31/24 Fall risk assessment: No Falls in past year Last assessed Fall Risk: 08/31/24 Dental Screening Dental Screen Date: 08/31/24 Did you have a dental visit in the last 12 months?: Yes Did you have a dental problem in the last 6 months where you did not have access to dental care?: No Was dental information given to patient?: Patient has dentist HPI Annual PE HPI Details 69-year-old obese male with peripheral v ascular disease coming in for physical exam last seen in August 2023. [facility] Medical History Obesity (BMI 30-39.9) Renal calculi Surgical History History of lithotripsy Social History Housing: Apartment Alcohol intake: never Patient Tobacco Use Status: Never used Tobacco Tobacco use type: Cigarette e-Cigarette/Vaping Use: Never Used Second Hand Smoke Exposure: No service: No Current occupational status: retired Cognitive needs: No Hearing needs: No Vision needs: No Questionnaire PHQ-9 Over the last 2 weeks, how often have you been bothered by any of the following problems? 1. Little interest or pleasure in doing things: not at all 2. Feeling down, depressed, or hopeless: not at all 3. Trouble falling or staying asleep, or sleeping too much: not at all 4. Feeling tired or having little energy: not at all 5. Poor appetite or overeating: not at all 6. Feeling bad about yourself - or that you are a failure or have let yourself or your family down: not at all 7. Trouble concentrating on things, such as reading the newspaper or watching television: not at all 8. Moving or speaking so slowly that other people could have noticed. Or the opposite - being so fidgety or restless that you have been moving around a lot more than usual: not at all 9. Thoughts that you would be better off or of hurting yourself in some way: not at all Total score: 0 Depression Screening Interpretation: Negative Depression Screening Done: Yes Source: Developed by Drs. David Larsen, Mary Snyder, Curtis Urbina and colleagues, with an educational mary lou from [employer]. Thrive Questionnaire Date Thrive assessed: 08/27/24 I am a: Patient What is your living situation today?: I have a steady place to live Within the past 12 months, did the food you bought not last and you didn't have the money to get more?: Never true Within the past 12 months, did you worry whether your food would run out before you got money to buy more?: Never true Do you have trouble paying for medicines?: No Do you have trouble getting transportation to medical appointments?: No Do you have trouble paying your heating and electricity bill?: No Do you have trouble taking care of your child, family member or friend?: No Do you have trouble with day-to-day activities such as bathing, preparing meals, shopping, managing finances, etc.?: No Are you currently unemployed and looking for a job?: No Are you interested in more education?: No Please select the resources that you would like help with: None Currently or been in a relationship where the following occur: No concerns reported THRIVE Score: 0 AUDIT C Alcohol Use Questionnaire (AUDIT-C) 1. How often do you have a drink containing alcohol?: Never Total Score: 0 LOU-7 AMB Questionnaire LOU-7 Date LOU - 7 assessed: 08/31/24 Feeling nervous, anxious, or on edge: 0 = Not at all Not being able to stop or control worryin = Not at all Worrying too much about different things: 0 = Not at all Trouble relaxin = Not at all Being so restless that it is hard to sit still: 0 = Not at all Becoming easily annoyed or irritable: 0 = Not at all Feeling afraid as if something awful might happen: 0 = Not at all Total LOU-7 score (0-4 normal; 5-9 mild; 10-14 moderate; 15-21 severe): 0 Source: Developed by Drs. David Larsen, Mary Snyder, Curtis Urbina and colleagues, with an educational mary lou from [employer]. Review of Systems Const Denies poor appetite and Denies weakness Eyes Denies no additional complaints ENT Reports Normal hearing present, Denies dizziness, Denies nasal congestion, Denies tinnitus and Denies sore throat Card Denies chest pain, Denies syncope, Denies rapid heart rate and Denies dyspnea Resp Denies cough and Denies dyspnea GI Denies change in stool character, Reports constipation, Denies diarrhea, Denies nausea and Denies vomiting Denies dysuria and Denies urinary frequency Neuro Reports Normal hearing present, Denies confusion, Denies dizziness, Denies syncope and Denies weakness Psych Denies confusion Physical exam (Primary Care) Vital Signs: Last Vital Signs Pulse 94 08/31/24 15:04 BP 112/74 08/31/24 15:04 Pulse Ox 97 08/31/24 15:04 Oxygen Delivery Method Room Air 08/31/24 15:04 BMI result Body Mass Index 37.6 Tobacco/Smoking Status: Tobacco use Status Tobacco use date assessed 08/31/24 08/31/24 15:09 Patient Tobacco Use Status Never used Tobacco 08/31/24 15:09 Tobacco use type Cigarette 08/31/24 15:09 e-Cigarette/Vaping Use Never Used 08/31/24 15:09 PHQ-9: PHQ-9 Score PHQ-9: Total score 0 08/31/24 15:23 Depression Screening Interpretation: Negative Thrive Assessment: Date of Thrive Assessment Date Thrive assessed 08/27/24 08/31/24 15:09 Currently or been in a relationship where the following occur: No concerns reported Const General: No confusion Orientation/consciousness: No confusion HENMT Head: Yes normocephalic Ears: external ears normal and TM's normal bilaterally Face and sinus: Yes normal facial exam Mouth: moist mucous membranes Throat: Yes tonsils normal Eyes Conjunctivae: conjunctivae normal Pupils: Equal, round and reactive pupils present and Pupil accommodation reflex normal Direct Ophthalmoscopy: normal light reflex Neck Neck: No lymphadenopathy Thyroid: Thyroid normal Chest Chest palpation & inspection: normal inspection of the chest Resp Effort & Inspection: normal respiratory effort and no audible wheezes Auscultation: clear to auscultation bilaterally, no crackles, no wheezes and lung sounds not diminished Cardio Rate: regular rate Rhythm: regular rhythm Peripheral pulses: radial pulses present and dorsalis pedis present GI Other: guaiac neg prostate N Palpation (GI): no masses Auscultation: normal bowel sounds and normoactive bowel sounds Male General Exam: Yes normal external exam Skin General skin exam: no rashes or lesions noted Rashes: no rashes Neuro General: No confusion Cranial nerves: Yes Equal, round and reactive pupils present and Yes Normal hearing present Cognition (Neuro): normal cognition Gait exam (Neuro): Normal gait present Motor exam (neuro): 5/5 motor strength present throughout Deep tendon reflexes (DTR's): Right brachioradialis reflex intensity grade: 2+, Left brachioradialis reflex intensity grade: 2+, Right patellar reflex intensity grade: 2+ and Left patellar reflex intensity grade: 2+ Extrem General: No edema Office Procedures Flu Questionnaire Does the patient have a severe egg allergy?: No Does the patient have severe life threatening allergies?: No Does the patient have a fever or illness today?: No Has the patient ever had Guillain-[place] Syndrome?: No Has the patient ever had any past reaction to a flu shot?: No Immunizations Fluarix Triv [id number] (PF) 45 mcg (15 mcg x 3)/0.5 mL IM syringe Performing Provider: Kaity Blanc MD [facility] Administered by: Marylou Hahn RN on 08/31/24 15:14 Dose Route Admin Location Dispensed Lot Number Expiration Date [facility] Aircraft Dispatcher 0.5 mL IM Left Deltoid 0.5 mL [id number] 05/21/25 31492-645-99 [facility] VIS Given Date VIS Provided VIS Publication Date 08/31/24 Single Vaccine 21 Eligibility Eligibility Date Funding Source Not [facility] Eligible 08/31/24 Private Coding Level of Care Code Est Pt Prev Care >65y(00305) Diagnoses Annual physical exam Z00.00 Obesity (BMI 30-39.9) E66.9 Peripheral vascular disease I73.9 Hypersomnia G47.10 Assessment & Plan Assessment & Plan (1) Annual physical exam: Code(s): Z00.00 - Encounter for general adult medical examination without abnormal findings Category: Medical Plan: Patient is advised to eat healthy, keep well hydrated, keep active and have adequate sleep. (2) Obesity (BMI 30-39.9): Code(s): E66.9 - Obesity, unspecified Category: Medical Plan: Diet and exercise (3) Peripheral vascular disease: Code(s): I73.9 - Peripheral vascular disease, unspecified Category: Medical Plan: When sitting down elevate the legs, exercise, and support stockings (4) Hypersomnia: Code(s): G47.10 - Hypersomnia, unspecified Category: Medical Plan: Sleep study requested Orders: Orders Influenza [id number] Immunization Today Z23 - Encounter for immunization Comprehensive Met. Panel 6 Months E66.9 - Obesity, unspecified Free T4 (Free Thyroxine) 6 Months E66.9 - Obesity, unspecified Prostate Specific Antigen Scr 6 Months E66.9 - Obesity, unspecified AMB EKG-In Office Today Z00.00 - Encounter for general adult medical examination without abnormal findings RT home sleep study Today G47.10 - Hypersomnia, unspecified Complete Blood Count Auto Diff 6 Months E66.9 - Obesity, unspecified Lipid Panel 6 Months E66.9 - Obesity, unspecified, E78.00 - Pure hypercholesterolemia, unspecified Thyroid Stimulating Hormone 6 Months E66.9 - Obesity, unspecified Vitamin B12 and Folate 6 Months E66.9 - Obesity, unspecified Hemoglobin A1c 6 Months E66.9 - Obesity, unspecified UA w Microscopic 6 Months E66.9 - Obesity, unspecified
[2024-08-31 15:04] VITALS: BP 112/74; PULSE 94; O2SAT 97; BMI 37.6
== END 2024-08-31 15:51 | disposition home or self-care (01) ==
PROVIDERS: PCP Internal Medicine; Visit Provider Internal Medicine
DX: Z00.00 Encounter for general adult medical examination without abnormal findings (principal); E66.812 Obesity, class 2; Z68.37 Body mass index [BMI] 37.0-37.9, adult; I73.9 Peripheral vascular disease, unspecified; G47.10 Hypersomnia, unspecified

== ENCOUNTER → 2024-08-31 15:00 | Outpatient (BNVA) | payer MEDICARE, SELFPAY | PROVIDERS: PCP Internal Medicine; Visit Provider Internal Medicine | DX: Z00.00 Encounter for general adult medical examination without abnormal findings (principal); Z23 Encounter for immunization; E66.9 Obesity, unspecified; I73.9 Peripheral vascular disease, unspecified; G47.10 Hypersomnia, unspecified | CPT/HCPCS: 90471; 90656; 96127; 99397 ==

== ENCOUNTER 2025-01-17 15:15 | Outpatient (REF) | payer MEDICARE, SELFPAY ==
[2025-01-18 13:07] LABS: Influenza A PCR NEGATIVE (Negative); Influenza B PCR NEGATIVE (Negative); Resp Syncy Virus RNA Qual PCR NEGATIVE (Negative); SARS COV2 PCR INHOUSE NEGATIVE (Negative)
== END 2025-01-17 15:16 | disposition home or self-care (01) ==
LOC: HO.LAB 15:15
PROVIDERS: Physician Assistant; PCP Internal Medicine
DX: J06.9 Acute upper respiratory infection, unspecified (principal)
CPT/HCPCS: 0241U; 99212

== ENCOUNTER 2025-01-17 15:15 | Outpatient (AMB) | payer MEDICARE, SELFPAY ==
[2025-01-17 15:19] VITALS: BP 124/70; PULSE 90; RESP 18; TEMP 38.2; O2SAT 95; BMI 37.6
--- NOTE | 2025-01-17 15:19 | MHC.OFFWIV ---
Intake Vital Signs 01/17/25 15:19 Height 6 ft Weight 277 lb BMI 37.6 BP 124/70 Blood Pressure Location Lt brachial Position Sitting Respiration 18 Pulse 90 Pulse Source Pulse Oximeter Temp 100.8 F H Temp Source Oral Pulse Oximetry (%) 95 Oxygen Delivery Method Room Air Intake Visit Reasons: EP Flu? Intake Note: Pt is here today chill, wheezing, coughing and fever Patient Tobacco Use Status: Never used Tobacco Allergies amoxicillin [From Augmentin] Adverse Reaction (Intermediate, Verified 01/17/25 15:27) Angioedema clavulanic acid [From Augmentin] Adverse Reaction (Intermediate, Verified 01/17/25 15:27) Angioedema ketorolac [From Toradol] Adverse Reaction (Intermediate, Verified 01/17/25 15:27) lip swollen HPI HPI Comments History of Present Illness Details History - The patient is a 69-year-old male presenting with progressive cough, wheezing, and fever starting 3d ago, with increased severity daily. - The patient describes the fever as 100.8?F, which temporarily decreases with Tylenol use. - Yellow sputum has been expectorated, and vomiting has occurred in conjunction with coughing episodes. - There is no use of tobacco, nor a history of asthma or COPD, eliminating some common risk factors. - Respiratory effort is noted as decreased with evidence of wheezing and some congestion. - Sinus pain and ear discomfort are denied, although there is a mention of headaches. Physical Exam General: Cooperative, healthy appearing, comfortable and no acute distress Orientation/consciousness: Patient oriented x3 Limitations: No limitations Head: Normal to inspection Ears: Hearing grossly normal bilaterally, external ears normal and TM's normal bilaterally Nose: Tender nose present, Normal nares present and No nasal discharge present Face and sinus: Normal facial exam and Yes sinuses nontender Mouth: Normal oral and palatal mucosa present and moist mucous membranes Throat: Yes tonsils normal, Yes uvula midline. Posterior oropharynx erythema Eyes: Appearance normal, both eyes and all related structures Neck: Normal visual inspection Respiratory: slight exp wheeze to auscultation bilaterally. Normal respiratory effort, able to speak in complete sentences, Actively coughing, no respiratory distress, not tachypneic, no tripod positioning and no use of accessory muscles. Cardiovascular: Regular rate and rhythm. Normal S1 and S2 Skin: No rashes or lesions noted Neuro: Patient oriented x3 Extremities: Normal to inspection and Yes no clubbing, cyanosis or edema [facility] Medical History Obesity (BMI 30-39.9) Renal calculi Surgical History History of lithotripsy Social History Housing: Apartment Alcohol intake: never Patient Tobacco Use Status: Never used Tobacco Tobacco use type: Cigarette e-Cigarette/Vaping Use: Never Used Second Hand Smoke Exposure: No service: No Current occupational status: retired Cognitive needs: No Hearing needs: No Vision needs: No Review of Systems Const All systems reviewed & are unremarkable except as noted in HPI and below Physical Exam Vital Signs: Last Vital Signs Temp 100.8 F H 01/17/25 15:19 Pulse 90 01/17/25 15:19 Resp 18 01/17/25 15:19 BP 124/70 01/17/25 15:19 Pulse Ox 95 01/17/25 15:19 Oxygen Delivery Method Room Air 01/17/25 15:19 BMI result Body Mass Index 37.6 Assessment & Plan Assessment & Plan (1) URI, acute: Code(s): J06.9 - Acute upper respiratory infection, unspecified Plan: Flu, Covid and RSV testing sent. VSS pt well appearing and PE remarkable for slight exp wheeze. Initiation of an inhaler for wheezing and congestion is recommended, with a detailed usage explanation provided to the patient. The administration of oral prednisone will commence the next morning to reduce pulmonary inflammation and as a preventative measure against development into pneumonia. The patient will utilize a cough suppressant during evening hours to facilitate better rest. Measures to combat dehydration, such as increased hydration with electrolyte supplementation, were emphasized. Mucinex and Dayanna D were suggested adjuncts for cough management and to aid in decongestion. Patient was informed and verbally consented to the use of an ambient scribe for clinic note documentation during this visit Orders: Orders SARS-CoV2/FLU/RSV Today J06.9 - Acute upper respiratory infection, unspecified Medications: New albuterol sulfate 90 mcg/actuation 2 puffs inhalation Q6H PRN 8.5 grams 0RF shortness of breath or wheezing or cough benzonatate 200 mg PO BEDTIME PRN 10 caps 0RF cough prednisone 20 mg PO DAILY 5 tabs 0RF Coding Level of Care Code Est Pt Level 3 (97959) Diagnoses URI, acute J06.9
== END 2025-01-17 16:01 | disposition home or self-care (01) ==
PROVIDERS: PCP Internal Medicine; Visit Provider Physician Assistant
DX: J06.9 Acute upper respiratory infection, unspecified (principal)

== ENCOUNTER 2025-09-04 14:57 | Outpatient (AMB) | payer MEDICARE, SELFPAY ==
[2025-09-04 15:08] VITALS: BP 128/84; PULSE 94; TEMP 36.3; O2SAT 95; BMI 38.9
--- NOTE | 2025-09-04 15:08 | MHC.PC.OV ---
Vital Signs 09/04/25 15:08 Height 6 ft Weight 287 lb BMI 38.9 BP 128/84 Blood Pressure Location Lt brachial Position Sitting Pulse 94 Pulse Source Pulse Oximeter Temp 97.3 F Temp Source Temporal Artery Scan Pulse Oximetry (%) 95 Oxygen Delivery Method Room Air Intake Visit Reasons: Annual Exam Allergies amoxicillin (From Augmentin) Adverse Reaction (Intermediate, Verified 09/04/25 15:12) Angioedema clavulanic acid (From Augmentin) Adverse Reaction (Intermediate, Verified 09/04/25 15:12) Angioedema ketorolac (From Toradol) Adverse Reaction (Intermediate, Verified 09/04/25 15:12) lip swollen Medication List - Last Reconciled 09/04/25 by Kaity Blanc MD No Known Home Meds Tobacco use date assessed: 09/04/25 Fall risk assessment: No Falls in past year Last assessed Fall Risk: 09/04/25 Dental Screening Dental Screen Date: 09/04/25 Did you have a dental visit in the last 12 months?: No Did you have a dental problem in the last 6 months where you did not have access to dental care?: No Was dental information given to patient?: Patient has dentist [facility] Medical History Obesity (BMI 30-39.9) Renal calculi Surgical History History of lithotripsy Family History (Updated 09/04/25 @ 15:38 by Kaity Blanc MD) Mother Renal cancer Father Bone cancer Social History Housing: Apartment Alcohol intake: never Patient Tobacco Use Status: Never used Tobacco Tobacco use type: Cigarette e-Cigarette/Vaping Use: Never Used Second Hand Smoke Exposure: No service: No Current occupational status: retired Cognitive needs: No Hearing needs: No Vision needs: No Questionnaire PHQ-9 Over the last 2 weeks, how often have you been bothered by any of the following problems? 1. Little interest or pleasure in doing things: not at all 2. Feeling down, depressed, or hopeless: not at all 3. Trouble falling or staying asleep, or sleeping too much: not at all 4. Feeling tired or having little energy: not at all 5. Poor appetite or overeating: not at all 6. Feeling bad about yourself - or that you are a failure or have let yourself or your family down: not at all 7. Trouble concentrating on things, such as reading the newspaper or watching television: not at all 8. Moving or speaking so slowly that other people could have noticed. Or the opposite - being so fidgety or restless that you have been moving around a lot more than usual: not at all 9. Thoughts that you would be better off or of hurting yourself in some way: not at all Total score: 0 Depression Screening Interpretation: Negative Depression Screening Done: Yes 45537 - PHQ-9 Billing: Yes Source: Developed by Drs. David Larsen, Mary Snyder, Curtis Urbina and colleagues, with an educational mary lou from [employer]. Thrive Questionnaire Date Thrive assessed: 08/28/25 I am a: Patient What is your living situation today?: I have a steady place to live Within the past 12 months, did the food you bought not last and you didn't have the money to get more?: Never true Within the past 12 months, did you worry whether your food would run out before you got money to buy more?: Never true Do you have trouble paying for medicines?: No Do you have trouble getting transportation to medical appointments?: No Do you have trouble paying your heating and electricity bill?: No Do you have trouble taking care of your child, family member or friend?: No Do you have trouble with day-to-day activities such as bathing, preparing meals, shopping, managing finances, etc.?: No Are you currently unemployed and looking for a job?: No Are you interested in more education?: No Please select the resources that you would like help with: None Currently or been in a relationship where the following occur: No concerns reported THRIVE Score: 0 AUDIT C Alcohol Use Questionnaire (AUDIT-C) 1. How often do you have a drink containing alcohol?: Never 3. How often do you have six or more drinks on one occasion?: Never Total Score: 0 LOU-7 AMB Questionnaire LOU-7 Date LOU - 7 assessed: 09/04/25 Feeling nervous, anxious, or on edge: 0 = Not at all Not being able to stop or control worryin = Not at all Worrying too much about different things: 0 = Not at all Trouble relaxin = Not at all Being so restless that it is hard to sit still: 0 = Not at all Becoming easily annoyed or irritable: 0 = Not at all Feeling afraid as if something awful might happen: 0 = Not at all Total LOU-7 score (0-4 normal; 5-9 mild; 10-14 moderate; 15-21 severe): 0 Source: Developed by Drs. David Larsen, Mary Snyder, Curtis Urbina and colleagues, with an educational mary lou from [employer]. LOU-7 Assessment Billing LOU-7 Assessment Tool: LOU-7 Assessment 97275 Review of Systems Const Denies poor appetite and Denies weakness Eyes Denies no additional complaints ENT Reports Normal hearing present, Denies dizziness, Denies nasal congestion, Denies tinnitus and Denies sore throat Card Denies chest pain, Denies syncope, Denies rapid heart rate and Denies dyspnea Resp Denies cough and Denies dyspnea GI Denies change in stool character, Reports constipation, Denies diarrhea, Denies nausea and Denies vomiting Denies dysuria and Denies urinary frequency Neuro Reports Normal hearing present, Denies confusion, Denies dizziness, Denies syncope and Denies weakness Psych Denies confusion Physical exam (Primary Care) Vital Signs: Last Vital Signs Temp 97.3 F 09/04/25 15:08 Pulse 94 09/04/25 15:08 BP 128/84 09/04/25 15:08 Pulse Ox 95 09/04/25 15:08 Oxygen Delivery Method Room Air 09/04/25 15:08 BMI result Body Mass Index 38.9 Tobacco/Smoking Status: Tobacco use Status Tobacco use date assessed 09/04/25 09/04/25 15:13 Patient Tobacco Use Status Never used Tobacco 09/04/25 15:13 Tobacco use type Cigarette 09/04/25 15:13 e-Cigarette/Vaping Use Never Used 09/04/25 15:13 PHQ-9: PHQ-9 Score PHQ-9: Total score 0 09/04/25 15:39 Depression Screening Interpretation: Negative Thrive Assessment: Date of Thrive Assessment Date Thrive assessed 08/28/25 09/04/25 15:13 Currently or been in a relationship where the following occur: No concerns reported Const General: alert and awake; No confusion Orientation/consciousness: No confusion HENMT Head: Yes normocephalic Ears: external ears normal and TM's normal bilaterally Face and sinus: Yes normal facial exam Mouth: moist mucous membranes Throat: Yes tonsils normal Eyes Conjunctivae: conjunctivae normal Pupils: Equal, round and reactive pupils present and Pupil accommodation reflex normal Direct Ophthalmoscopy: normal light reflex Neck Neck: No lymphadenopathy Thyroid: Thyroid normal Chest Chest palpation & inspection: normal inspection of the chest Resp Effort & Inspection: normal respiratory effort and no audible wheezes Auscultation: clear to auscultation bilaterally, no crackles, no wheezes and lung sounds not diminished Cardio Rate: regular rate Rhythm: regular rhythm Peripheral pulses: radial pulses present and dorsalis pedis present GI Other: guaiac negative, prostate N Inspection: Yes normal to inspection Palpation (GI): no masses Auscultation: normal bowel sounds and normoactive bowel sounds Rectal Exam - Male: Yes deferred Male General Exam: Yes normal external exam Skin General skin exam: no rashes or lesions noted Rashes: no rashes Neuro General: deep tendon reflexes 2+ bilaterally and No confusion Cranial nerves: Yes Equal, round and reactive pupils present, Yes Midline tongue present, Yes Normal hearing present and Yes Ability to bilaterally elevate shoulders present Cognition (Neuro): normal cognition Gait exam (Neuro): Normal gait present Motor exam (neuro): 5/5 motor strength present throughout Deep tendon reflexes (DTR's): Right brachioradialis reflex intensity grade: 2+, Left brachioradialis reflex intensity grade: 2+, Right patellar reflex intensity grade: 2+ and Left patellar reflex intensity grade: 2+ Extrem General: No edema Office Procedures Flu Questionnaire Does the patient have a severe egg allergy?: No Does the patient have severe life threatening allergies?: No Does the patient have a fever or illness today?: No Has the patient ever had Guillain-Sarles Syndrome?: No Has the patient ever had any past reaction to a flu shot?: No Immunizations Fluarix [id number] (PF) 45 mcg (15 mcg x 3)/0.5 mL IM syringe Performing Provider: Kaity Blanc MD [facility] Administered by: Isis Askew CMA on 09/04/25 15:20 Dose Route Admin Location Dispensed Lot Number Expiration Date NDC Java Web [employer] 0.5 mL IM Left Deltoid 0.5 mL [id number] 05/21/26 [id number] [employer] VIS Given Date VIS Provided VIS Publication Date 09/04/25 Single Vaccine 24 Eligibility Eligibility Date Funding Source Not [facility] Eligible 09/04/25 Private Coding Level of Care Code Est Pt Prev Care >65y(83429) Diagnoses Annual physical exam Z00.00 Obesity (BMI 30-39.9) E66.9 Peripheral vascular disease I73.9 Additional Codes LOU-7 Assessment Billing - LOU-7 Assessment Tool: LOU-7 Assessment 62637 ([id number]) PHQ-9 - 64923 - PHQ-9 Billing: Yes ([id number]) Assessment & Plan Assessment & Plan (1) Annual physical exam: Code(s): Z00.00 - Encounter for general adult medical examination without abnormal findings Category: Medical Plan: Patient is advised to eat healthy, keep well hydrated, keep active and have adequate sleep. (2) Obesity (BMI 30-39.9): Code(s): E66.9 - Obesity, unspecified Category: Medical Plan: Diet and exercise (3) Peripheral vascular disease: Code(s): I73.9 - Peripheral vascular disease, unspecified Category: Medical Plan: When sitting down elevate the legs, exercise, and support stockings Plan History of Present Illness The patient is a 70-year-old male presenting for a physical examination and management of chronic conditions. The patient has a history of obesity, with a recent 10-pound weight gain over the past year, bringing his weight to 287 pounds. He reports no new symptoms related to his weight gain but acknowledges the need for dietary and exercise modifications. The patient has a history of peripheral vascular disease, which has been stable since his last visit. He denies any new symptoms such as claudication or changes in skin color of the extremities. In December, the patient was treated for an upper respiratory tract infection with an albuterol inhaler and prednisone. Viral testing was negative, and the patient reports no ongoing respiratory symptoms. The patient has known allergies to penicillin and ketorolac, which have previously caused adverse reactions. He has not experienced any recent allergic reactions. Family history is significant for kidney cancer in his mother and bone cancer in his father. He denies any personal history of cancer. The patient is not currently taking any medications and denies the use of [id number] drugs or supplements. He does not smoke or consume alcohol. 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 32 years - Family: , is retired - Exercise: Engages in walking and helps nephew with household tasks - Substance Use: Denies smoking and alcohol consumption - Nutrition: Prefers ice water with lemon, not a big water drinker Review of Systems - General: Denies fever, chills, or weight loss - Cardiovascular: Denies chest pain, palpitations, or syncope - Respiratory: Denies dyspnea, cough, or wheezing - Gastrointestinal: Denies nausea, vomiting, or abdominal pain - Neurological: Denies dizziness, headaches, or balance issues - Musculoskeletal: Reports arthritis, denies joint swelling Physical Exam General: Cooperative, healthy appearing, comfortable, no acute distress, well developed, and noted 10-pound weight gain. Orientation: Patient oriented x3 Limitations: No limitations Head: Normal to inspection Ears: Hearing grossly normal bilaterally, but noted a lot of earwax that needs flushing. Nose: Normal external nose present Face and sinus: Normal facial exam Eyes: Appearance normal, both eyes and all related structures Neck: Normal visual inspection and Yes full ROM Respiratory: Normal respiratory effort and able to speak in complete sentences. Clear to auscultation bilaterally Cardiovascular: Regular rate and rhythm. Normal S1 and S2 GI: Normal to inspection. Soft to palpation and nontender Skin: No rashes or lesions noted Neuro: Patient oriented x3 Extremities: Normal to inspection, but noted arthritis and joint pains. Results - Labs: April 2024 blood work showed normal blood count, electrolytes, renal function, blood sugar, hemoglobin A1c, liver function, and cholesterol levels - Viral testing: Negative for viral infections in December Patient was informed and verbally consented to the use of an ambient scribe for clinic note documentation during this visit. 1. Obesity The patient is advised to engage in regular physical activity and adhere to a balanced diet to manage his weight. Follow-up appointments are recommended to monitor weight and assess the effectiveness of lifestyle modifications. 2. Peripheral Vascular Disease The patient's peripheral vascular disease is stable, and no new symptoms have been reported. Continued monitoring and routine follow-up are advised to ensure stability. 3. Upper Respiratory Tract Infection The patient was treated with an albuterol inhaler and prednisone in December, with negative viral testing results. No further respiratory symptoms have been reported, and no additional treatment is necessary at this time. 4. Allergies To Penicillin And Ketorolac The patient is advised to avoid penicillin and ketorolac due to previous adverse reactions. Consideration for allergy testing may be discussed in future visits if necessary. 5. Preventative Care The patient is due for a tetanus vaccination, last received in 2012, and is encouraged to consider the shingles vaccine available at pharmacies. Regular health maintenance visits are recommended to ensure up-to-date vaccinations and screenings. Discussion Notes During the visit, we discussed the importance of managing obesity through diet and exercise, and the patient was advised to follow up for weight monitoring. We reviewed the patient's stable peripheral vascular disease and emphasized the need for regular follow-ups. The patient was informed about the negative viral testing for his previous upper respiratory tract infection and the resolution of symptoms. We discussed the patient's allergies to penicillin and ketorolac, advising avoidance and considering future allergy testing. Preventative care measures, including the tetanus and shingles vaccinations, were highlighted, and the patient was encouraged to maintain regular health check-ups. Patient Instructions - Engage in regular physical activity and follow a balanced diet to manage weight. - Schedule follow-up appointments to monitor weight and health status. - Avoid penicillin and ketorolac due to allergies. - Consider getting the tetanus and shingles vaccinations. - Maintain regular health check-ups to ensure up-to-date vaccinations and screenings. Orders: Orders Influenza [id number] Immunization Today Z23 - Encounter for immunization
== END 2025-09-04 15:55 | disposition home or self-care (01) ==
LOC: HO.HMCH 14:58
PROVIDERS: PCP Internal Medicine; Visit Provider Internal Medicine
DX: Z00.00 Encounter for general adult medical examination without abnormal findings (principal); E66.9 Obesity, unspecified; Z68.38 Body mass index [BMI] 38.0-38.9, adult; I73.9 Peripheral vascular disease, unspecified; Z23 Encounter for immunization

== ENCOUNTER → 2025-09-04 14:57 | Outpatient (BNVA) | payer MEDICARE, SELFPAY | PROVIDERS: PCP Internal Medicine; Visit Provider Internal Medicine | DX: Z00.00 Encounter for general adult medical examination without abnormal findings (principal); E66.9 Obesity, unspecified; I73.9 Peripheral vascular disease, unspecified; Z23 Encounter for immunization; Z68.38 Body mass index [BMI] 38.0-38.9, adult | CPT/HCPCS: 90471; 90656; 96127; 99397 ==